=== PATIENT | female | born 1990 | race Caucasian/White ===

== ENCOUNTER 2020-03-20 11:16 | Emergency (ER) | payer OTHER ==
[~2020-03-20] VITALS: Ht 170.2 cm; Wt 63.5 kg
[~2020-03-20 11:16] MED LIST: ACET500 PO; ALBU90OI61 INH; CYCL10; CYCL10 PO; DIPH50; DOCU100; FLUSAL5005 INH; IBUP800 PO; METO10 PO; NAPR500 PO; ONDA4ODT; ONDA4ODT MM; OXYACE5T PO; PRED10; PROM12.5S PR; Percocet 5-3251 EACH PO; RANI150; Sudogest30 MG; Ultram50 MG PO; Vitafol-Ob+Dha1 EACH PO; ZOLP5 PO; Zofran8 MG PO
[2020-03-20] MEDS ORDERED: HYDMOR4 PO (13:47)
[2020-03-20] MEDS ORDERED: CRUTCH2 XX (13:47)
[2020-03-20] MEDS ORDERED: HYDMOR2 PO (13:52)
== END 2020-03-20 14:18 | disposition home or self-care (01) ==
LOC: ER 11:16
DX: S82.831A Other fracture of upper and lower end of right fibula, initial encounter for closed fracture (principal); S82.51XA Displaced fracture of medial malleolus of right tibia, initial encounter for closed fracture; J45.909 Unspecified asthma, uncomplicated; Z88.4 Allergy status to anesthetic agent; Z88.5 Allergy status to narcotic agent; Z91.09 Other allergy status, other than to drugs and biological substances; Z88.8 Allergy status to other drugs, medicaments and biological substances; Z79.899 Other long term (current) drug therapy; V80.010A Animal-rider injured by fall from or being thrown from horse in noncollision accident, initial encounter
CPT/HCPCS: 27788; 36415; 73590; 73600; 76000; 96374-59; 96375-59; 96376-59; 99152; 99284-25; J1170; J2405; J2704; J7030

== ENCOUNTER 2020-12-30 17:05 | Emergency (ER) | payer OTHER ==
[~2020-12-30] VITALS: Ht 170.2 cm; Wt 68.0 kg
[~2020-12-30 17:05] MED LIST changes: +CRUTCH2 XX; +HYDMOR2 PO; +HYDMOR4 PO
[2020-12-30] MEDS ORDERED: IBUP800 PO (18:57)
[2020-12-30] MEDS ORDERED: ONDA4 PO (19:08)
== END 2020-12-30 19:12 | disposition home or self-care (01) ==
LOC: ER 17:05
DX: M25.522 Pain in left elbow (principal); J45.909 Unspecified asthma, uncomplicated; Z88.5 Allergy status to narcotic agent; Z91.09 Other allergy status, other than to drugs and biological substances; Z79.899 Other long term (current) drug therapy
CPT/HCPCS: 73080; 99283-25; A9270

== ENCOUNTER → 2022-10-31 | Outpatient (CLI) | payer OTHER ==
[~2022-10-31] MED LIST changes: +ONDA4 PO
[2022-10-31 11:58] LABS: BASOPHILS ABSOLUTE AUTO 0.03 K/mm3 (0.00-0.23); BASOPHILS PERCENT AUTO 0 % (0-2); EOSINOPHILS PERCENT AUTO 0 % (0-6); Hemoglobin 13.2 g/dL (11.5-16.0); IMMATURE GRAN ABSOLUTE AUTO 0.02 K/mm3 (0.00-0.10); IMMATURE GRAN PERCENT AUTO 0 % (0-1); LYMPHOCYTES ABSOLUTE AUTO 0.56 K/mm3 (0.84-5.20); LYMPHOCYTES PERCENT AUTO 7 % (21-46); MONOCYTES ABSOLUTE AUTO 0.48 K/mm3 (0.16-1.47); MONOCYTES PERCENT AUTO 6 % (4-13); Mean Corpuscular HGB 30.1 pg (26.0-34.0); Mean Corpuscular HGB Conc 33.8 g/dL (31.5-36.5); Mean Corpuscular Volume 89 fL (80-100); Mean Platelet Volume 9.8 fL (9.1-12.4); NEUTROPHILS ABSOLUTE AUTO 7.24 K/mm3 (1.96-9.15); NEUTROPHILS PERCENT AUTO 87 % (41-73); Platelet Count 179 K/mm3 (150-400); RDW Coefficient Variation 12.7 % (11.7-14.2); RDW Standard Deviation 41.4 fL (35.1-46.3); Red Blood Cell Count 4.39 M/mm3 (3.80-5.20); White Blood Cell Count 8.33 K/mm3 (4.00-11.30)
[2022-10-31 12:09] LABS: Albumin, Blood 4.5 g/dL (3.4-5.0); Albumin/Globulin Ratio 1.2 (0.8-1.8); Bilirubin, Total 0.5 mg/dL (0.1-1.0); Bun/Creatinine Ratio 11.1 (12.0-20.0); Calcium, Blood 9.2 mg/dL (8.5-10.1); Creatinine, Blood 0.81 mg/dL (0.40-1.00); Globulin, Blood 3.8 g/dL (2.2-4.0); Potassium, Blood 4.1 mmol/L (3.5-5.5); Total Protein, Blood 8.3 g/dL (6.4-8.2)
== END | disposition home or self-care (01) ==
LOC: LAB SHORT 11:54 → LAB 11:54
PROVIDERS: Physician Assistant
DX: R19.7 Diarrhea, unspecified (principal)
CPT/HCPCS: 80053; 83690; 85025

== ENCOUNTER → 2023-06-06 | Outpatient (CLI) | payer OTHER ==
[~2023-06-06] MED LIST changes: +CORTISOL PO; +OMEP20ER PO
[2023-06-11 12:12] LABS: METANEPH/CREAT RATIO 0.3 (0.0-1.0)
== END ==
LOC: LAB SHORT 05:30 → LAB 05:30
PROVIDERS: Internal Medicine Cardiovascular Disease
DX: R42 Dizziness and giddiness (principal)
CPT/HCPCS: 82570; 83835

== ENCOUNTER 2023-08-16 09:37 | Day surgery (SDC) | payer OTHER ==
[~2023-08-16] VITALS: Ht 170.2 cm; Wt 66.5 kg
[~2023-08-16 09:37] MED LIST changes: +CETI5 PO; +Cortef5 MG; +ERGO50000 PO; +FLUT1DIS5 INH; +LEVOCETIRIZINE D5 MG PO; +Lysine500 MG PO; +MULTI-VITAMIN1 EAC2 PO
[2023-08-16] MEDS ORDERED: ONDA4 (10:01)
[2023-08-16] MEDS ORDERED: B COMPLEX FORM0.4 MG (10:01)
[2023-08-16] MEDS ORDERED: GABA300 (10:02)
--- NOTE | 2023-08-16 11:01 | NUR ---
08/16/23 1101 Kori Mancilla RN UPDATED PT OF DELAYED TIME D/T DR SINGH BEING DELAYED HE IS STILL IN PROC[facility]URE [facility]. PT VERBALIZED UNDERSTANDING AND DENIED ANY FURTHER QUESTIONS OR CONCERNS.
[2023-08-16 13:05] VITALS: BP 102/62
== END 2023-08-16 13:08 | disposition home or self-care (01) ==
LOC: ORSCSDS 09:37
PROVIDERS: Internal Medicine Gastroenterology
PROC: 0DB98ZX Excision of Duodenum, Via Natural or Artificial Opening Endoscopic, Diagnostic (ICD-10-PCS; principal; 2023-08-16 10:45)
PROC: 0DBE8ZX Excision of Large Intestine, Via Natural or Artificial Opening Endoscopic, Diagnostic (ICD-10-PCS; principal; 2023-08-16 10:45)
PROC: 0DB68ZX Excision of Stomach, Via Natural or Artificial Opening Endoscopic, Diagnostic (ICD-10-PCS; principal; 2023-08-16 10:45)
DX: K90.0 Celiac disease (principal); K52.9 Noninfective gastroenteritis and colitis, unspecified; Z79.899 Other long term (current) drug therapy
CPT/HCPCS: 88305; 88342; J2704; J7120

== ENCOUNTER → 2023-11-21 | Outpatient (CLI) | payer OTHER ==
[~2023-11-21] MED LIST changes: +B COMPLEX FORM0.4 MG; +GABA300; +ONDA4
== END | disposition home or self-care (01) ==
LOC: LAB 07:36 → LAB SHORT 07:36
DX: N93.9 Abnormal uterine and vaginal bleeding, unspecified (principal)
CPT/HCPCS: 88305

== ENCOUNTER → 2024-01-23 | Outpatient (CLI) | payer OTHER ==
[~2024-01-23] MED LIST changes: +B-1100 M1 PO; +BUTALBITAL ACE; +GABA300 PO; +MAGNESIUM OXID500 MG PO
[2024-01-23 15:56] LABS: Source, Urine Voided
[2024-01-23 17:11] LABS: Appearance, Urine Clear (Clear); Bilirubin, Urine Neg (Neg); Blood, Urine 1+ (Neg); Glucose Qualitative, Urine Neg (Neg); Ketones, Urine Neg (Neg); Leukocyte Esterase, Urine 1+ (Neg); Nitrite, Urine Neg (Neg); Protein, Urine Neg (Neg); Specific Gravity, Urine 1.005 (1.003-1.022); Urobilinogen, Urine NORM (Normal)
[2024-01-23 17:28] LABS: Color, Urine Pale Yellow (P-Yellow)
[2024-01-23 17:31] LABS: Bacteria Rare /hpf; Red Blood Cells, Urine 0-2 /hpf (0-2); Squamous Epithelial Cells Not Seen /hpf (Few)
== END ==
LOC: LAB SHORT 15:54 → LAB 15:54
PROVIDERS: Obstetrics & Gynecology
DX: R30.0 Dysuria (principal)
CPT/HCPCS: 81001; 87077; 87086; 87186

== ENCOUNTER 2024-07-19 16:54 | Emergency (ER) | payer OTHER ==
[~2024-07-19] VITALS: Ht 170.2 cm; Wt 63.5 kg
[2024-07-19 16:59] VITALS: BP 146/75
[2024-07-19] MEDS ORDERED: Ketorolac Tromethamine 15mg Vial IM ONE (17:00)
[2024-07-19] MEDS ORDERED: Morphine Sulfate 4 MG/1 ML Injection IM ONE ×2 (18:00→18:50)
[2024-07-19] MEDS ORDERED: Percocet 5-3251 EACH PO (18:33)
[2024-07-19] MEDS ORDERED: RX Prepack 6 Tabs Oxycodone 5mg UD ONE (19:05)
== END 2024-07-19 19:15 | disposition home or self-care (01) ==
LOC: ER 16:54
DX: S82.392A Other fracture of lower end of left tibia, initial encounter for closed fracture (principal); J45.909 Unspecified asthma, uncomplicated; Z59.89 Other problems related to housing and economic circumstances; W20.8XXA Other cause of strike by thrown, projected or falling object, initial encounter
CPT/HCPCS: 29515; 73610; 96372-59; 99283-25; A9270; J1885; J2270